=== PATIENT | female | born 1980 | race Caucasian/White ===

== ENCOUNTER 2019-07-25 19:36 | Emergency (ER) | payer OTHER ==
[~2019-07-25] VITALS: Ht 162.6 cm; Wt 63.5 kg
[2019-07-25] MEDS ORDERED: ZESTRIL20 MG PO (19:49)
== END 2019-07-25 23:43 | disposition home or self-care (01) ==
LOC: ER 19:36
DX: J01.00 Acute maxillary sinusitis, unspecified (principal)

== ENCOUNTER 2021-10-20 17:55 | Emergency (ER) | payer OTHER ==
[~2021-10-20] VITALS: Ht 162.6 cm; Wt 65.3 kg
[~2021-10-20 17:55] MED LIST: ZESTRIL20 MG PO
[2021-10-20] MEDS ORDERED: KETO10TA2 PO (20:06)
[2021-10-20] MEDS ORDERED: PERCOCET 5-3251 EACH PO (20:06)
== END 2021-10-20 20:30 | disposition home or self-care (01) ==
LOC: ER 17:55
DX: M65.30 Trigger finger, unspecified finger (principal); M79.641 Pain in right hand